=== PATIENT | male | born 1995 | race Caucasian/White ===

== ENCOUNTER 2021-01-29 21:11 | Emergency (ER) | payer OTHER ==
[2021-01-29 21:24] VITALS: BP 127/80; PULSE 100; RESP 20; TEMP 98.1
--- NOTE | 2021-01-29 23:08 | ED ---
Recheck HPI - General Chief Complaint: Recheck/Abnormal Lab/Rx Stated Complaint: Hand injury,Covid test Time Seen by Provider: 01/29/21 21:28 Source: patient Mode of arrival: ambulatory Limitations: no limitations - History of Present Illness Initial Comments: Patient is a 25-year-old male presenting to the emergency department requesting a Covid test so he can go back into [facility]. He states that he hurt his left hand playing hockey and wants to go to [facility] for evaluation of this. He denies any symptoms such as chest pain, shortness of breath, cough, fevers or chills. He states he does not want his left hand evaluated here. He has no further complaints. - Related Data Allergies Allergy/AdvReac Type Severity Reaction Status Date / Time cefaclor [From Ceclor] Allergy Rash/Hives Verified 01/29/21 21:24 Review of Systems ROS Statement: Those systems with pertinent positive or pertinent negative responses have been documented in the HPI. ROS Other: All systems not noted in ROS Statement are negative. Past Medical History Past Medical History: No Reported History History of Any Multi-Drug Resistant Organisms: None Reported Past Surgical History: No Surgical Hx Reported Past Psychological History: No Psychological Hx Reported Smoking Status: Never smoker Past Alcohol Use History: Occasional Past Drug Use History: None Reported General Exam - General Exam Comments Initial Comments: GENERAL: Patient is well-developed and well-nourished. Patient is nontoxic and in no acute distress. HEAD: Atraumatic, normocephalic. EYES: Pupils equal round and reactive to light, extraocular movements intact, sclera anicteric, conjunctiva are normal. Eyelids were unremarkable. ENT: Moist mucous membranes. NECK: Normal range of motion, supple without lymphadenopathy or JVD. LUNGS: Unlabored respirations. Breath sounds clear to auscultation bilaterally and equal. No wheezes rales or rhonchi. HEART: Regular rate and rhythm without murmurs, rubs or gallops. ABDOMEN: Soft, nontender, normoactive bowel sounds. No guarding, no rebound. No masses appreciated. : Deferred MUSCULOSKELETAL: Patient has mild swelling noted to the left hand, decreased range of motion secondary to pain. Neurovascular intact. No clubbing or cyanosis. NEUROLOGICAL: Patient is alert and oriented x 3. SKIN: Warm, Dry, normal turgor, no rashes or lesions noted. Limitations: no limitations Course Vital Signs 01/29/21 21:17 Temperature 98.1 F Pulse Rate 100 Respiratory 20 Rate Blood Pressure 127/80 O2 Sat by Pulse 98 Oximetry Medical Decision Making - Medical Decision Making Patient is a 25-year-old male here requesting a Covid test for reentry back in the [facility]. He has a left hand injury from hockey however he does not want this evaluated here. He states he would rather have x-rays in [facility]. His covid test is negative, he stable for discharge. - Lab Data Lab Results 01/29/21 Range/Units 21:30 Coronavirus (PCR) Not Detected (Not Detectd) Disposition Clinical Impression: Lab test negative for COVID-19 virus Disposition: HOME SELF-CARE Condition: Stable Instructions (If sedation given, give patient instructions): Normal Exam (ED) Additional Instructions: Please return to the Emergency Department if symptoms worsen or any other concerns. Covid test is negative. Is patient prescribed a controlled substance at d/c from ED?: No Referrals: None,Stated [Primary Care Provider] - 1-2 days Time of Disposition: 23:08
== END 2021-01-29 23:08 | disposition home or self-care (01) ==
LOC: EC 21:11
DX: Z20.822 Contact with and (suspected) exposure to COVID-19 (principal); Z88.1 Allergy status to other antibiotic agents
CPT/HCPCS: 87635; 99282